=== PATIENT | male | born 1950 | race Two or more races ===

== ENCOUNTER 2024-10-24 12:26 | Emergency (ER) | payer OTHER ==
[~2024-10-24] VITALS: Ht 165.1 cm; Wt 81.6 kg
[2024-10-24 13:06] VITALS: BP 159/85; O2SAT 95
[2024-10-24] MEDS ORDERED: COZAAR25 MG PO (13:07)
[2024-10-24] MEDS ORDERED: AMLODIPINE-OLM1 EAC2 PO (13:08)
[2024-10-24] MEDS ORDERED: NASAL MIST126 ML (13:08)
[2024-10-24] MEDS ORDERED: METFORMIN HCL1000 M2 PO (13:08)
[2024-10-24 15:24] LABS: BASO % 0.3 % (0.1-1.2); EOS # 0.32 (0.04-0.54); EOS % 3.4 % (0.7-7.0); HEMATOCRIT 45.4 % (40.1-51.0); LYMPH # 1.22 (1.18-3.74); LYMPH % 13.1 % (19.3-53.1); MEAN CORPUSCULAR HEMOGLOBIN 29.4 pg (25.6-32.2); MONO # 0.94 (0.24-0.82); MONO % 10.1 % (4.7-12.5); NEUT # 6.75 (1.56-6.13); NEUT % 72.9 % (34.0-71.1); PLATELET COUNT 239 K/uL (163-369); RED BLOOD COUNT 5.27 M/uL (4.63-6.08); RED CELL DISTRIBUTION WIDTH 12.6 % (11.6-14.4)
[2024-10-24 15:25] LABS: HEMOGLOBIN 15.5 g/dL (13.7-17.5)
[2024-10-24 16:08] LABS: ALBUMIN 4.2 gm/dL (3.4-5.0); BILIRUBIN TOTAL 0.5 mg/dL (0.3-1.2); CALCIUM 9.6 mg/dL (8.5-10.1); CREATININE SERUM 0.96 mg/dL (0.70-1.30); GFR 76.57; GLOBULINA 3.9 G/DL (2.4-3.5); POTASSIUM 3.83 mEq/L (3.5-5.1); TOTAL PROTEIN 8.1 gm/dL (6.4-8.2)
[2024-10-24 16:16] LABS: PH,URINE 5.5 (5.0-8.0); URINE APPEARANCE Clear; URINE BILIRRUBIN Small (NEGATIVE); URINE BLOOD Negative; URINE COLOR Dark Yellow; URINE KETONE Trace (NEGATIVE); URINE LEUKOCYTE Negative; URINE NITRATE Negative
[2024-10-24 16:19] LABS: URINE BACTERIA 56.3 uL (0.0-1933); URINE EPITHELIAL CELLS 4.9 uL (0.0-38.8); URINE RBC 11.3 uL (0.0-20.8); URINE WBC 2.5 uL (0.0-23.2)
[2024-10-24 16:37] LABS: URINE CRYSTALS FEW /HPF; URINE GLUCOSE 250 MG/DL (NEGATIVE); URINE PROTEIN 300 (NEGATIVE); URINE SPERM MANY
== END 2024-10-24 18:02 | disposition home or self-care (01) ==
LOC: ER 13:50
PROVIDERS: Emergency Medicine
DX: R73.9 Hyperglycemia, unspecified (principal); I10 Essential (primary) hypertension; Z79.84 Long term (current) use of oral hypoglycemic drugs; Z91.013 Allergy to seafood